=== PATIENT | male | born 1995 | race Two or more races ===

== ENCOUNTER 2018-06-21 13:21 | Emergency (ER) | payer MEDICAID ==
[~2018-06-21] VITALS: Ht 175.3 cm; Wt 76.2 kg
--- NOTE | 2018-06-21 13:47 | NUR ---
PT IS IN ROOM #2B. DR LITTLEJOHN EVALUATED THE PT.
[2018-06-21 14:32] LABS: BASOPHILS % (AUTO) 1.2 % (0.0-2.0); EOSINOPHILS % (AUTO) 1.3 % (0.0-7.0); HEMATOCRIT 44.3 % (36.7-47.1); HEMOGLOBIN 15.4 g/dL (12.5-16.3); LYMPHOCYTES # (AUTO) 0.9 K/uL (20.0-40.0); LYMPHOCYTES % (AUTO) 29.5 % (20.5-74.5); MEAN CORPUSCULAR HEMOGLOBIN 31.2 uug (23.8-33.4); MEAN CORPUSCULAR HGB CONC 35 g/dL (32.5-36.3); MEAN CORPUSCULAR VOLUME 89.6 fL (73.0-96.2); MONOCYTES # (AUTO) 0.3 K/uL (2.0-10.0); MONOCYTES % (AUTO) 9.1 % (0-11); NEUTROPHILS # (AUTO) 1.8 K/uL (1.8-8.9); NEUTROPHILS % (AUTO) 58.9 % (31.5-64.5); PLATELET COUNT (AUTO) 194 K/uL (152-348); RED BLOOD CELL COUNT(AUTO) 4.94 MIL/uL (4.06-5.63); WHITE BLOOD COUNT (AUTO) 3.1 K/uL (3.6-10.2)
[2018-06-21 14:41] LABS: CREATININE 1.1 mg/dL (0.6-1.3); POTASSIUM 4.4 mmol/L (3.5-5.1)
--- NOTE | 2018-06-21 15:49 | NUR ---
PT WAS D/C'D TO HOME. D/C INSTRUCTIONS GIVEN TO THE PT. PT DENIES PAIN. NO SOB. NO S/S OF DISTRESS AT THIS TIME.
[2018-06-21 15:50] VITALS: BP 129/81
== END 2018-06-21 15:51 | disposition home or self-care (01) ==
LOC: ER 13:22
DX: F41.9 Anxiety disorder, unspecified (principal); R53.1 Weakness; Z91.013 Allergy to seafood
CPT/HCPCS: 36415; 70030-TC; 71045; 85025; 93005; A4663